=== PATIENT | female | born 1975 | race Caucasian/White ===

== ENCOUNTER 2017-04-24 16:06 | Emergency (ER) | payer BC ==
--- NOTE | 2017-04-24 17:38 | UC ---
UC General HPI - HPI Summary HPI Summary: pt is c/o scratchy throat, L ear pain and now subjective fever, chills, watery eyes and cough with head/congestion. no cp, sob or hx asthma onset 5 days ago. now worsening. - History of Current Complaint Chief Complaint: UCRespiratory Stated Complaint: VILLARREAL,ERNST,FEVER,COUGH,EARS Time Seen by Provider: 04/24/17 17:18 Hx Obtained From: Patient Onset/Duration: Gradual Onset Timing: Constant Pain Intensity: 4 Associated Signs & Symptoms: Positive: Cough, Fever Similar Episode/Dx as: sinus infection and bronchitis - Allergy/Home Medications Allergies/Adverse Reactions: Allergies Allergy/AdvReac Type Severity Reaction Status Date / Time Penicillins Allergy Unknown Hives Verified 04/24/17 16:54 Home Medications: Home Medications Cyclobenzaprine TAB* [Flexeril 10 MG TAB*] 10 mg PO TID PRN 04/24/17 [History Confirmed 04/24/17] Dm/Acetaminophen/Doxylamine [Night Cold-Flu Relief Liq Gel] 1 each PO PRN [History] Pseudoephedrine TAB* [Sudafed TAB*] 30 mg PO Q6H PRN 04/24/17 [History Confirmed 04/24/17] diPHENhydraMINE PO* [Benadryl PO 25 MG TAB*] 25 mg PO Q6H PRN 04/24/17 [History Confirmed 04/24/17] PMH/Surg Hx/FS Hx/Imm Hx - Additional Past Medical History Additional PMH: sinusitis, bronchitis - Surgical History Surgical History: Yes Surgery Procedure, Year, and Place: PRARTIAL HYSTERECTOMY, APPENDECTOMY, CHOLYCYSTECTOMY - Social History Occupation: Employed Full-time Lives: With Family Alcohol Use: Rare Substance Use Type: None Smoking Status (MU): Light Every Day Tobacco Smoker Type: Cigarettes Amount Used/How Often: 1/2 PPD Household Exposure Type: Cigarettes - Immunization History Vaccination Up to Date: Yes Review of Systems Constitutional: Fever, Chills ENT: Sore Throat, Ear Ache, Nasal Discharge, Sinus Congestion, Sinus Pain/ Tenderness Respiratory: Cough Is Patient Immunocompromised?: No All Other Systems Reviewed And Are Negative: Yes Physical Exam Triage Information Reviewed: Yes Appearance: Well-Appearing Vital Signs: Initial Vital Signs Temp 98.1 F 04/24/17 16:56 Pulse 85 04/24/17 16:56 Resp 18 04/24/17 16:56 BP 120/76 04/24/17 16:56 Pulse Ox 100 04/24/17 16:56 Vital Signs Reviewed: Yes Eyes: Positive: Conjunctiva Clear, Other: - watery eyes ENT: Positive: Pharynx normal, Nasal congestion, Nasal drainage - mucoid Respiratory: Positive: Lungs clear, No respiratory distress, Decreased breath sounds, Other: - cough is congested Cardiovascular: Positive: RRR, No Murmur Abdomen Description: Positive: Nontender, No Organomegaly, Soft Bowel Sounds: Positive: Present Neurological: Positive: Alert Psychological: Positive: Age Appropriate Behavior Skin Exam: Normal Diagnostics - Laboratory Diagnostic Studies Completed/Ordered: rapid flu=negative Course/Dx - Course Course Of Treatment: non toxic, ill x 5 days but is worsening. will tx albuterol inhaler. if not improving within a couple of days, pt will start doxycycline for sinus and lung coverage. - Differential Dx - Multi-Symptom Provider Diagnoses: URI. Cough. Chest congestion Discharge - Discharge Plan Condition: Stable Disposition: HOME Prescriptions: Albuterol HFA INHALER* [Ventolin HFA Inhaler*] 2 puff INH Q6H #1 mdi DOXYcycline CAP(*) [DOXYcycline 100MG CAP(*)] 100 mg PO DAILY #20 cap Patient Education Materials: Upper Respiratory Infection (ED), Acute Cough (ED) Forms: *Work Release Referrals: Non Staff,Doctor [Primary Care Provider] - Additional Instructions: IF NOT IMPROVING IN 2 DAYS, START THE ANTIBIOTIC. START IT SOONER FOR ANY WORSENING. FOLLOW UP WITH CHRISTY ANDERS/PA(YOUR PRIMARY CARE). [phone] IN 5- 7 DAYS FOR A RECHECK OR SOONER IF WORSE.
== END 2017-04-24 18:10 | disposition home or self-care (01) ==
LOC: UCCORT 16:06
DX: J06.9 Acute upper respiratory infection, unspecified (principal); R05 Cough; J34.89 Other specified disorders of nose and nasal sinuses; Z88.0 Allergy status to penicillin; F17.210 Nicotine dependence, cigarettes, uncomplicated
CPT/HCPCS: 87502; 99202; G0463